=== PATIENT | male | born 1975 | race Caucasian/White ===

== ENCOUNTER 2021-07-30 16:15 | Emergency (ER) | payer OTHER ==
[~2021-07-30] VITALS: Ht 182.9 cm; Wt 100.0 kg
[2021-07-30] MEDS ORDERED: ACETAMINOPHEN 325MG TABLET PO ONE (17:15)
[2021-07-30 22:32] VITALS: BP 135/76
== END 2021-07-30 22:34 | disposition home or self-care (01) ==
LOC: ER 16:15
DX: R51.9 Headache, unspecified (principal); K13.29 Other disturbances of oral epithelium, including tongue
CPT/HCPCS: 99284